=== PATIENT | male | born 1990 | race Two or more races ===

== ENCOUNTER 2020-04-03 03:17 | Emergency (ER) | payer SELFPAY ==
[~2020-04-03] VITALS: Ht 162.6 cm; Wt 75.0 kg
[2020-04-03] MEDS ORDERED: KETOROLAC 60MG/2ML VIAL IM STA (03:39)
[2020-04-03] MEDS ORDERED: HYDROCODONE/ACETAMINOPHEN 5/325MG TABLET PO STA (03:39)
[2020-04-03] MEDS ORDERED: PROPOFOL 200MG/20ML VIAL IV ONE (06:45)
[2020-04-03] MEDS ORDERED: MORPHINE SULFATE 10 MG/ML CPJ IV ONE (06:45)
[2020-04-03] MEDS ORDERED: KETAMINE HCL 50 MG/ML 10ML IV ONE (06:45)
[2020-04-03] MEDS ORDERED: SODIUM CHLORIDE 0.9% 1,000 ML IV ONE (06:45)
[2020-04-03 11:16] VITALS: BP 126/99
== END 2020-04-03 11:20 | disposition home or self-care (01) ==
LOC: ER 03:17
DX: S52.592A Other fractures of lower end of left radius, initial encounter for closed fracture (principal); W17.89XA Other fall from one level to another, initial encounter; Y93.89 Activity, other specified; Y92.89 Other specified places as the place of occurrence of the external cause
CPT/HCPCS: 73090; 73100; 73110; 96361; 96372; 96374; 96375; 99285; J1885; J2270; J2704; J3490; J7030